=== PATIENT | female | born 1950 | race Caucasian/White ===

== ENCOUNTER → 2016-09-16 | Outpatient (CLI) | payer MEDICARE ==
--- NOTE | 2016-09-16 14:18 | RAD ---
PET oncologic study 09/16/2016 Technique: Blood glucose prior to injection: 87 mg/dL Scan region: Skull base to mid thigh Radiopharmaceutical: F-18 FDG 11.72 mCi IV Calibration time: Start 0955 hours and finished at 1120 hours Administration time: 1000 hours on 09/16/2016 Injection site: Right antecubital Postinjection imaging delay: Scan time 1059 hours on 09/16/2016 Clinical information: Diagnostic; abnormal chest x-ray and CT Comparison: None available. Attenuation correction was performed utilizing a noncontrast, nondiagnostic CT. Findings: There are scattered subcentimeter lymph nodes within the neck, none of which are pathologically enlarged. Visualized brain parenchyma is normal. Carotid vascular calcifications are present. Thyroid gland appears normal. No enlarged lymph nodes in the axillary, mediastinal or hilar regions. Heart size is within normal limits. Thoracic aorta is normal in caliber. No pericardial or pleural effusions. There is a 12 x 11 mm solid noncalcified pulmonary nodule in the left upper lobe (series 3, image 124) with max SUV 0.85. There is an additional 3 mm solid noncalcified pulmonary nodule in the left upper lobe (series 3, image 136). There is a 6 mm noncalcified pulmonary nodule in the right upper lobe (series 3, image 22). 6 mm hypodense lesion in the posterior right hepatic lobe may represent simple cyst. Cholecystectomy changes are identified in the left upper quadrant. Physiologic FDG uptake is identified in the kidneys, bowel and urinary bladder. Spleen and bilateral adrenal glands are normal. There are no pathologically enlarged lymph nodes within the abdomen or pelvis. Atherosclerotic ulceration of the abdominal aorta is present. Impression: 1. 12 x 11 mm solid on her side pulmonary nodule in the left upper lobe does not demonstrate FDG elevated E. This may still represent either a non-FDG avid malignancy versus metastasis versus granulomatous disease. No FDG avid hilar or mediastinal adenopathy. Tissue sampling is recommended. 2. There is no FDG avid malignancy.
== END | disposition home or self-care (01) ==
LOC: PETSC 09:47
PROVIDERS: ATTEND General Practice
DX: R91.8 Other nonspecific abnormal finding of lung field (principal)
CPT/HCPCS: 78815; A9552